=== PATIENT | male | born 1975 | race Caucasian/White ===

== ENCOUNTER 2020-03-02 10:55 | Observation (INO) ==
[2020-03-02] MEDS ORDERED: NITROGLYCERIN 2% OINT 1 INCH/GM PACK TOP STA (11:27)
[2020-03-02] MEDS ORDERED: NITROGLYCERIN SL 0.4 MG TABLET SL PRN (11:27)
[2020-03-02] MEDS ORDERED: ASPIRIN 325 MG TABLET PO STA (11:27)
[2020-03-02] MEDS ORDERED: ENOXAPARIN 100 MG/ML SYRINGE SUBCUT STA (11:27)
[2020-03-02] MEDS ORDERED: ASPIRIN CHEW 81 MG TABLET PO ONE (11:51)
[2020-03-02] MEDS ORDERED: ASPIRIN CHEW 81 MG TABLET PO STA (11:52)
[2020-03-02] MEDS ORDERED: CLOPIDOGREL 300 MG TABLET PO STA (11:59)
[2020-03-02 12:07] LABS: Basophils % 0.3 % (0.0-0.8); Eosinophils % 0.5 % (0.00-10.9); Hematocrit 50.3 VOL% (42.0-52.0); Hemoglobin 16.7 GM/DL (14.0-18.0); Immature Granulocytes % 0.5 %; Immature Granulocytes Absolute 0.04 #; Lymphocytes # 0.9 10*3/uL (1.4-4.0); Lymphocytes % 12.4 % (21.2-54.2); Mean Corpuscular HGB Conc 33.2 GM/DL (32-36); Mean Corpuscular Volume 91.1 FL (87-102); Monocytes % 5.6 % (1.7-12.7); Neutrophils % 80.7 % (38.7-73.9); Platelet Count 156 T/CUMM (130-400); Red Blood Count 5.52 MC/CUMM (3.8-5.5); Red Cell Distribution Width 12.7 % (9.3-17.3); White Blood Count 7.5 T/CUMM (4-12)
[2020-03-02 12:28] LABS: Calcium 9.1 MG/DL (8.5-10.1); Osmolality,Calculated 266.4 MOS/KG (273-304)
[2020-03-02 15:13] LABS: PT Patient Result 10.9 SECS (9.8-11.9); Partial Thromboplastin Time 40.2 SECS (23.9-33.8)
[2020-03-02] MEDS ORDERED: ZALEPLON 5 MG CAPSULE PO PRN (15:30)
[2020-03-02] MEDS ORDERED: ONDANSETRON 4 MG/2 ML VIAL IV PRN (15:30)
[2020-03-02] MEDS ORDERED: MAGNESIUM SULF RIDER 2 GM in PREMIX 1 EACH IV PRN (15:30)
[2020-03-02] MEDS ORDERED: MAGNESIUM SULF RIDER 4 GM in PREMIX 1 EACH IV PRN (15:30)
[2020-03-02] MEDS ORDERED: MORPHINE 4 MG/1 ML VIAL IV PRN (15:30)
[2020-03-02] MEDS: SODIUM CHLORIDE 0.45% 1,000 ML IV SCH (17:48)
[2020-03-02] MEDS: NITROGLYCERIN 2% OINT 1 INCH/GM PACK TOP SCH ×2 (17:49→23:56)
[2020-03-02] MEDS: METOPROLOL TARTRATE 25 MG TABLET PO SCH (20:39)
[2020-03-02] MEDS: ENOXAPARIN 100 MG/ML SYRINGE SUBCUT SCH (23:56)
[2020-03-03] MEDS: SODIUM CHLORIDE 0.45% 1,000 ML IV SCH ×3 (02:00→18:48)
[2020-03-03] MEDS: NITROGLYCERIN 2% OINT 1 INCH/GM PACK TOP SCH ×3 (05:22→17:08)
[2020-03-03 05:58] LABS: VLDL CHOLESTEROL 27.2 MG/DL
[2020-03-03] MEDS: lisinopriL 20 MG TABLET PO SCH (09:43)
[2020-03-03] MEDS: CLOPIDOGREL 75 MG TABLET PO SCH (09:44)
[2020-03-03] MEDS: METOPROLOL TARTRATE 25 MG TABLET PO SCH ×2 (09:44→21:36)
[2020-03-03] MEDS: ATORVASTATIN 80 MG TABLET PO SCH (09:44)
[2020-03-03] MEDS: PANTOPRAZOLE 40 MG TABLET PO SCH (09:44)
[2020-03-03] MEDS: EZETIMIBE 10 MG TABLET PO SCH (09:45)
[2020-03-03] MEDS: ASPIRIN EC 81 MG TABLET PO SCH (09:45)
[2020-03-03] MEDS: ENOXAPARIN 100 MG/ML SYRINGE SUBCUT SCH ×2 (11:42→22:11)
[2020-03-04] MEDS: NITROGLYCERIN 2% OINT 1 INCH/GM PACK TOP SCH ×2 (01:40→05:01)
[2020-03-04] MEDS: SODIUM CHLORIDE 0.45% 1,000 ML IV SCH ×2 (05:07→10:17)
[2020-03-04 08:58] VITALS: BP 134/61
[2020-03-04] MEDS: ASPIRIN EC 81 MG TABLET PO SCH (10:16)
[2020-03-04] MEDS: METOPROLOL TARTRATE 25 MG TABLET PO SCH (10:16)
[2020-03-04] MEDS: lisinopriL 20 MG TABLET PO SCH (10:16)
[2020-03-04] MEDS: CLOPIDOGREL 75 MG TABLET PO SCH (10:16)
[2020-03-04] MEDS: ATORVASTATIN 80 MG TABLET PO SCH (10:16)
[2020-03-04] MEDS: EZETIMIBE 10 MG TABLET PO SCH (10:16)
[2020-03-04] MEDS: PANTOPRAZOLE 40 MG TABLET PO SCH (10:16)
[2020-03-04] MEDS: ENOXAPARIN 100 MG/ML SYRINGE SUBCUT SCH (10:39)
== END 2020-03-04 11:38 | disposition home or self-care (01) ==
LOC: N.EDINP 10:55 → N.ED 10:55 → N.TELES 16:04
PROVIDERS: ADMIT Internal Medicine Interventional Cardiology; ATTEND Internal Medicine Interventional Cardiology